=== PATIENT | female | born 1940 | race Caucasian/White ===

== ENCOUNTER 2025-08-09 00:34 | Inpatient (IN) | payer MEDICARE ==
[2025-08-09] MEDS ORDERED: Potassium Bicarbonate/Cit Ac 20 MEQ TAB ONE (01:26)
[2025-08-09] MEDS ORDERED: Metoclopramide HCl 10 MG (2 mL) VIAL ONE (01:44)
[2025-08-09] MEDS ORDERED: Ondansetron PF 4 MG/2 ML Vial IVP PRN (05:05)
[2025-08-09] MEDS ORDERED: Calcium Carbonate 500 MG ChewTAB PO PRN (05:05)
[2025-08-09] MEDS ORDERED: Glucagon 1 MG/ML KIT IM PRN (05:06)
[2025-08-09] MEDS ORDERED: Dextrose 50% Abboject 50 ML SYRINGE SLOW IVP PRN (05:06)
[2025-08-09] MEDS ORDERED: Furosemide 40 MG (4 mL) VIAL ONE (05:38)
[2025-08-09 06:04] LABS: #Basophils 0.04 10x3/uL (0.0-0.2); #Eosinophils 0.03 10x3/uL (0.0-0.7); #Monocytes 0.96 10x3/uL (0.11-0.59); #Neutrophils 10.88 10x3/uL (1.40-6.50); %Basophils 0.2 % (0.0-1.0); %Eosinophils 0.2 % (0.0-10.0); %Lymphocytes 27.5 % (21.0-51.0); %Monocytes 5.8 % (0.0-10.0); %Neutrophils 65.8 % (42.0-75.0); Hematocrit 42.6 % (36.0-47.0); Hemoglobin 14.5 g/dL (12.0-16.0); Mean Corpuscular Hemoglobin 28.0 pg (27.0-31.0); Mean Corpuscular Volume 82.2 fL (78.0-98.0); Platelet Count 81 10x3/uL (130-400); Red Blood Cell (RBC) Count 5.18 mill/uL (4.20-5.40); White Blood Cell (WBC) Count 16.54 10x3/uL (4.8-10.8)
[2025-08-09 06:37] LABS: ALT (SGPT) 125 U/L (Less than 34); AST (SGOT) 121 U/L (11-34); Albumin 3.3 g/dL (3.1-4.5); Alkaline Phosphatase 94 U/L (40-110); Anion Gap 18 mmol/L (10-20); Bilirubin, Total 0.6 mg/dL (0.3-1.2); Calc. Creatinine Clearance 0 mL/min (70-130); Calcium 10.3 mg/dL (7.8-10.44); Carbon Dioxide 35 mmol/L (23-31); Chloride 84 mmol/L (98-107); Globulin 3.4 g/dL (2.4-3.5); Glucose 205 mg/dL (83-110); Lipase 29 U/L (8-78); Magnesium 2.2 mg/dL (1.6-2.6); Potassium 2.9 mmol/L (3.5-5.1); Sodium 134 mmol/L (136-145)
[2025-08-09 06:44] LABS: BUN (Urea Nitrogen) 126 mg/dL (9.8-20.1)
[2025-08-09 11:02] VITALS: BMI 27.5
[2025-08-09 19:39] LABS: ALT (SGPT) 107 U/L (Less than 34); AST (SGOT) 115 U/L (11-34); Albumin 2.8 g/dL (3.1-4.5); Alkaline Phosphatase 77 U/L (40-110); Anion Gap 15 mmol/L (10-20); BUN (Urea Nitrogen) 105 mg/dL (9.8-20.1); Bilirubin, Total 0.6 mg/dL (0.3-1.2); Calc. Creatinine Clearance 22 mL/min (70-130); Calcium 9.1 mg/dL (7.8-10.44); Carbon Dioxide 27 mmol/L (23-31); Chloride 91 mmol/L (98-107); Globulin 2.9 g/dL (2.4-3.5); Glucose 224 mg/dL (83-110); Potassium 4.0 mmol/L (3.5-5.1); Sodium 129 mmol/L (136-145)
[2025-08-10 05:22] LABS: #Basophils 0.04 10x3/uL (0.0-0.2); #Eosinophils 0.13 10x3/uL (0.0-0.7); #Monocytes 0.77 10x3/uL (0.11-0.59); #Neutrophils 5.38 10x3/uL (1.40-6.50); %Basophils 0.4 % (0.0-1.0); %Eosinophils 1.3 % (0.0-10.0); %Lymphocytes 37.4 % (21.0-51.0); %Monocytes 7.6 % (0.0-10.0); %Neutrophils 52.8 % (42.0-75.0); Hematocrit 37.7 % (36.0-47.0); Hemoglobin 11.9 g/dL (12.0-16.0); Mean Corpuscular Hemoglobin 27.2 pg (27.0-31.0); Mean Corpuscular Volume 86.3 fL (78.0-98.0); Platelet Count 60 10x3/uL (130-400); Red Blood Cell (RBC) Count 4.37 mill/uL (4.20-5.40); White Blood Cell (WBC) Count 10.17 10x3/uL (4.8-10.8)
[2025-08-10 05:31] LABS: ALT (SGPT) 98 U/L (Less than 34); AST (SGOT) 110 U/L (11-34); Albumin 2.6 g/dL (3.1-4.5); Alkaline Phosphatase 70 U/L (40-110); Anion Gap 16 mmol/L (10-20); BUN (Urea Nitrogen) 86 mg/dL (9.8-20.1); Bilirubin, Total 0.5 mg/dL (0.3-1.2); Calc. Creatinine Clearance 23 mL/min (70-130); Calcium 9.0 mg/dL (7.8-10.44); Carbon Dioxide 25 mmol/L (23-31); Chloride 97 mmol/L (98-107); Globulin 3.0 g/dL (2.4-3.5); Glucose 133 mg/dL (83-110); Magnesium 1.9 mg/dL (1.6-2.6); Potassium 3.4 mmol/L (3.5-5.1); Sodium 135 mmol/L (136-145)
[2025-08-10] MEDS: Levothyroxine 150 MCG TAB PO SCH (05:31)
[2025-08-10] MEDS: Enoxaparin 80 MG (0.8 mL) SYRINGE SC SCH (21:52)
[2025-08-11 05:55] LABS: #Basophils 0.04 10x3/uL (0.0-0.2); #Eosinophils 0.10 10x3/uL (0.0-0.7); #Monocytes 0.62 10x3/uL (0.11-0.59); #Neutrophils 4.29 10x3/uL (1.40-6.50); %Basophils 0.5 % (0.0-1.0); %Eosinophils 1.2 % (0.0-10.0); %Lymphocytes 39.8 % (21.0-51.0); %Monocytes 7.3 % (0.0-10.0); %Neutrophils 50.6 % (42.0-75.0); Hematocrit 34.3 % (36.0-47.0); Hemoglobin 11.1 g/dL (12.0-16.0); Mean Corpuscular Hemoglobin 27.9 pg (27.0-31.0); Mean Corpuscular Volume 86.2 fL (78.0-98.0); Platelet Count 77 10x3/uL (130-400); Red Blood Cell (RBC) Count 3.98 mill/uL (4.20-5.40); White Blood Cell (WBC) Count 8.47 10x3/uL (4.8-10.8)
[2025-08-11 06:17] LABS: ALT (SGPT) 84 U/L (Less than 34); AST (SGOT) 64 U/L (11-34); Albumin 2.5 g/dL (3.1-4.5); Alkaline Phosphatase 64 U/L (40-110); Anion Gap 14 mmol/L (10-20); BUN (Urea Nitrogen) 58 mg/dL (9.8-20.1); Bilirubin, Total 0.3 mg/dL (0.3-1.2); Calc. Creatinine Clearance 29 mL/min (70-130); Calcium 8.8 mg/dL (7.8-10.44); Carbon Dioxide 27 mmol/L (23-31); Chloride 98 mmol/L (98-107); Globulin 2.5 g/dL (2.4-3.5); Glucose 163 mg/dL (83-110); Magnesium 1.6 mg/dL (1.6-2.6); Potassium 2.6 mmol/L (3.5-5.1); Sodium 136 mmol/L (136-145)
[2025-08-11] MEDS: NS 0.9% w/ 40 MEQ KCL 1,000 ML IV SCH (08:07)
[2025-08-11 12:14] LABS: Potassium 3.1 mmol/L (3.5-5.1)
[2025-08-11 13:16] VITALS: BMI 27.5
[2025-08-11 18:14] LABS: Magnesium 1.5 mg/dL (1.6-2.6); Potassium 3.6 mmol/L (3.5-5.1)
[2025-08-11] MEDS: Magnesium Sulfate/D5W 1 GM in Premix 1 BAG IVPB SCH (20:00)
[2025-08-11] MEDS: Acetaminophen 325 MG TAB PO PRN (22:43)
[2025-08-12 04:48] LABS: Anion Gap 12 mmol/L (10-20); BUN (Urea Nitrogen) 33 mg/dL (9.8-20.1); Calc. Creatinine Clearance 36 mL/min (70-130); Calcium 8.8 mg/dL (7.8-10.44); Carbon Dioxide 27 mmol/L (23-31); Chloride 103 mmol/L (98-107); Glucose 115 mg/dL (83-110); Magnesium 1.6 mg/dL (1.6-2.6); Potassium 3.5 mmol/L (3.5-5.1); Sodium 138 mmol/L (136-145)
[2025-08-12] MEDS: Enoxaparin 80 MG (0.8 mL) SYRINGE SC SCH (04:59)
[2025-08-12] MEDS: Magnesium Sulfate/D5W 1 GM in Premix 1 BAG IVPB SCH (11:47)
[2025-08-12] MEDS ORDERED: Levothyroxine 150 MCG TAB PO SCH (12:15)
[2025-08-12] MEDS: NIFEdipine XL 60 MG ER.TAB PO SCH (13:42)
[2025-08-12] MEDS: Apixaban 2.5 MG TAB PO SCH (20:46)
[2025-08-12] MEDS: Amoxicillin/Potassium Clav 875 MG TAB PO SCH (20:46)
[2025-08-12] MEDS ORDERED: Enoxaparin 80 MG (0.8 mL) SYRINGE SC SCH (21:00)
[2025-08-13] MEDS: Levothyroxine 175 MCG TAB PO SCH (06:04)
[2025-08-13] MEDS ORDERED: Iopamidol-370 76% 500 ML MDV (1 ML CHARGE) ONE (09:33)
[2025-08-13] MEDS: NIFEdipine XL 60 MG ER.TAB PO SCH (14:40)
[2025-08-13 17:18] LABS: #Basophils 0.04 10x3/uL (0.0-0.2); #Eosinophils 0.03 10x3/uL (0.0-0.7); #Monocytes 0.69 10x3/uL (0.11-0.59); #Neutrophils 8.67 10x3/uL (1.40-6.50); %Basophils 0.3 % (0.0-1.0); %Eosinophils 0.2 % (0.0-10.0); %Lymphocytes 23.4 % (21.0-51.0); %Monocytes 5.5 % (0.0-10.0); %Neutrophils 69.8 % (42.0-75.0); Hematocrit 40.2 % (36.0-47.0); Hemoglobin 13.0 g/dL (12.0-16.0); Mean Corpuscular Hemoglobin 27.5 pg (27.0-31.0); Mean Corpuscular Volume 85.2 fL (78.0-98.0); Platelet Count 92 10x3/uL (130-400); Red Blood Cell (RBC) Count 4.72 mill/uL (4.20-5.40); White Blood Cell (WBC) Count 12.44 10x3/uL (4.8-10.8)
[2025-08-13 17:29] LABS: INR-International Normal Ratio 1.0; PTT 33.0 sec (22.9-36.1); Prothrombin Time 13.6 sec (12.0-14.7)
[2025-08-13 17:33] LABS: Anion Gap 14 mmol/L (10-20); BUN (Urea Nitrogen) 20 mg/dL (9.8-20.1); Calc. Creatinine Clearance 53 mL/min (70-130); Calcium 9.7 mg/dL (7.8-10.44); Carbon Dioxide 26 mmol/L (23-31); Chloride 101 mmol/L (98-107); Glucose 150 mg/dL (83-110); Magnesium 1.4 mg/dL (1.6-2.6); Potassium 3.7 mmol/L (3.5-5.1); Sodium 137 mmol/L (136-145)
[2025-08-13] MEDS ORDERED: Apixaban 2.5 MG TAB PO SCH (18:30)
[2025-08-13] MEDS: Enoxaparin 80 MG (0.8 mL) SYRINGE SC SCH (20:40)
[2025-08-13] MEDS: Magnesium Sulfate/D5W 1 GM in Premix 1 BAG IVPB SCH (21:22)
[2025-08-13] MEDS: Metoprolol Tartrate 5 MG (5 mL) VIAL IVP SCH (22:10)
[2025-08-14 04:19] LABS: Bacteria/HPF None Seen HPF (None Seen); CAUTI Indications for Culture Alt mental st,lethar; Glucose, Urine (Dipstick) 50 mg/dL (Negative); Leukocyte 500 Leu/uL (Negative); Protein, Urine (Dipstick) 30 mg/dL (Neg-Trace); RBC/HPF 0-3 HPF (0-3); Specific Gravity, Urine 1.030 (1.002-1.036); WBC/HPF 21-50 HPF (0-3)
[2025-08-14 04:21] LABS: Urine Culture Reflex Yes Yes
[2025-08-14 05:05] LABS: #Basophils 0.04 10x3/uL (0.0-0.2); #Eosinophils 0.05 10x3/uL (0.0-0.7); #Monocytes 0.93 10x3/uL (0.11-0.59); #Neutrophils 8.23 10x3/uL (1.40-6.50); %Basophils 0.3 % (0.0-1.0); %Eosinophils 0.4 % (0.0-10.0); %Lymphocytes 24.8 % (21.0-51.0); %Monocytes 7.5 % (0.0-10.0); %Neutrophils 66.2 % (42.0-75.0); Hematocrit 39.1 % (36.0-47.0); Hemoglobin 12.6 g/dL (12.0-16.0); Mean Corpuscular Hemoglobin 27.7 pg (27.0-31.0); Mean Corpuscular Volume 85.9 fL (78.0-98.0); Platelet Count 88 10x3/uL (130-400); Red Blood Cell (RBC) Count 4.55 mill/uL (4.20-5.40); White Blood Cell (WBC) Count 12.43 10x3/uL (4.8-10.8)
[2025-08-14 05:11] LABS: Anion Gap 14 mmol/L (10-20); BUN (Urea Nitrogen) 19 mg/dL (9.8-20.1); Calc. Creatinine Clearance 49 mL/min (70-130); Calcium 9.7 mg/dL (7.8-10.44); Carbon Dioxide 27 mmol/L (23-31); Cardiac Risk 3.5 (Less than 4.5); Chloride 102 mmol/L (98-107); Cholesterol 144 mg/dl (< 200 Desired); Glucose 131 mg/dL (83-110); HDL Cholesterol 41 mg/dL (>60 Neg Risk); LDL Cholesterol, Calculated 82 mg/dL; Magnesium 1.7 mg/dL (1.6-2.6); Potassium 3.5 mmol/L (3.5-5.1); Sodium 139 mmol/L (136-145); Triglycerides 104 mg/dL (Less than 150)
[2025-08-14] MEDS ORDERED: Apixaban 2.5 MG TAB PO SCH (09:00)
[2025-08-14] MEDS: Enoxaparin 80 MG (0.8 mL) SYRINGE SC SCH (09:54)
[2025-08-14] MEDS: Pantoprazole 40 MG VIAL IVP SCH (09:55)
[2025-08-14 10:20] VITALS: TEMP 98.4
[2025-08-14 11:46] VITALS: BP 152/69
[2025-08-14] MEDS ORDERED: Electrolyte Replacement Protocol 1 EACH FS SCH (13:45)
[2025-08-14] MEDS ORDERED: Potassium Chloride 20 MEQ in Premix 1 BAG IVPB PRN (14:15)
[2025-08-14] MEDS ORDERED: PHOS-NAK 1 PKT PACK PO PRN (14:15)
[2025-08-14] MEDS ORDERED: Magnesium Sulfate In Water 4 GM in Premix 1 BAG IVPB PRN (14:15)
[2025-08-14] MEDS ORDERED: Mupirocin 1 GM TUBE NASAL DECOLONIZATION NASAL SCH (21:00)
== END 2025-08-14 17:04 | disposition hospice, home (50) | DRG 872 ==
LOC: ERS 00:34 → 2NO 04:46 → IMCU/EMU 08-13 20:57
PROVIDERS: ADMIT Student in an Organized Health Care Education/Training Program; ATTEND Internal Medicine
PROC: 3E03329 Introduction of Other Anti-infective into Peripheral Vein, Percutaneous Approach (ICD-10-PCS; 2025-08-09)
PROC: XX20X89 Monitoring of Brain Electrical Activity, Computer-aided Detection and Notification, New Technology Group 9 (ICD-10-PCS; principal; 2025-08-13)
DX: A41.59 Other Gram-negative sepsis (principal); S42.211A Unspecified displaced fracture of surgical neck of right humerus, initial encounter for closed fracture; N17.9 Acute kidney failure, unspecified; E87.1 Hypo-osmolality and hyponatremia; N39.0 Urinary tract infection, site not specified; K80.00 Calculus of gallbladder with acute cholecystitis without obstruction; I13.0 Hypertensive heart and chronic kidney disease with heart failure and stage 1 through stage 4 chronic kidney disease, or unspecified chronic kidney disease; R65.20 Severe sepsis without septic shock; Z66 Do not resuscitate; I48.91 Unspecified atrial fibrillation; E11.9 Type 2 diabetes mellitus without complications; I50.9 Heart failure, unspecified; E87.6 Hypokalemia; K59.00 Constipation, unspecified; E03.9 Hypothyroidism, unspecified; E78.5 Hyperlipidemia, unspecified; K21.9 Gastro-esophageal reflux disease without esophagitis; M10.9 Gout, unspecified; B96.1 Klebsiella pneumoniae [K. pneumoniae] as the cause of diseases classified elsewhere; N32.81 Overactive bladder; N18.30 Chronic kidney disease, stage 3 unspecified; Z88.5 Allergy status to narcotic agent; Z88.8 Allergy status to other drugs, medicaments and biological substances; Z79.899 Other long term (current) drug therapy; Z79.01 Long term (current) use of anticoagulants; Z79.51 Long term (current) use of inhaled steroids; Z79.890 Hormone replacement therapy
CPT/HCPCS: 36415; 36416; 70450; 70496; 70498; 70551; 71045; 72170; 74018; 76705; 80048; 80053; 80061; 81001; 83036; 83690; 83735; 84439; 84443; 84484; 85025; 85610; 85730; 87086; 93005; 93010; 93306; 95705; 96361; 96374; J1650; J1815; J1940; J2470; J2543; J2765; J3475; J3480; J7030; J7120; Q9967